=== PATIENT | female | born 1985 | race Caucasian/White ===

== ENCOUNTER 2020-01-01 14:05 | Inpatient (IN) ==
[2020-01-02] MEDS ORDERED: LIDOCAINE HCL 50 ML VIAL PERI PRN (06:13)
[2020-01-02] MEDS ORDERED: BUTORPHANOL TARTRATE 2 MG/ML VIAL IV PRN ×2 (06:13)
[2020-01-02] MEDS ORDERED: RINGER'S SOLUTION,LACTATED 1,000 ML IV ONE (06:13)
[2020-01-02] MEDS ORDERED: ONDANSETRON 4 MG TAB.RAPDIS PO PRN (06:13)
[2020-01-02] MEDS ORDERED: OXYTOCIN/DEXTROSE 5%-WATER 30 UNITS/500 ML BAG IV ONE (06:13)
[2020-01-02] MEDS ORDERED: MISOPROSTOL 100 MCG TABLET VG PRN (07:31)
--- NOTE | 2020-01-02 08:28 | HP ---
Chief Complaint - Chief Complaint Date of Service: 01/02/20 Time of Service: 08:24 Chief Complaint: Labor induction History of Present Illness: 34 year old at 39w 1d who presents to labor and delivery for a medical IOL due to AMA. She denies ctx, vb or lof. Fetus is active. Medical History (Last Reviewed 01/02/20 @ 08:25 by Dolly Delgadillo MD) POTS (postural orthostatic tachycardia syndrome) Asthma mild intermittent asthma-no problems for several years Surgical History: Surgical History (Last Reviewed 01/02/20 @ 08:25 by Dolly Delgadillo MD) History of breast surgery Onset Date: ~2013 right gland/partial duct removed Hx of cholecystectomy Onset Date: ~2017 Normal colonoscopy Onset Date: ~2010 abdominal pain, bloody stools Family History: Family History (Last Reviewed 01/02/20 @ 08:25 by Dolly Delgadillo MD) Mother Cancer thyroid cancer Father Diabetes borderline Sister History of heart murmur in childhood Social History: (Last Reviewed 01/02/20 @ 08:25 by Dolly Delgadillo MD) Social History: adopted: No Marital status: household members: spouse, children current occupational status: unemployed current occupation: stay at home mom current occupational exposures/hazards: No Highest education level completed: high school graduate Service: No Tobacco: Smoking Status: Never smoker Alcohol: alcohol intake: never Substance Use: substance use type: does not use Dietary Habits: caffeine: Yes Review Of Systems (GEN) - Review of Systems Generalized/Overall Review: Present: No Symptoms Reported Misc: All systems neg except as marked Allergies/Adverse Reactions: Allergies Allergy/AdvReac Type Severity Reaction Status Date / Time No Known Drug Allergies Allergy Verified 12/30/19 09:14 adhesive tape AdvReac RASH Verified 12/30/19 09:14 garlic AdvReac Itching Verified 12/30/19 09:14 Influenza Virus Vaccines AdvReac Shortness Verified 12/30/19 09:14 of Breath onion AdvReac GI upset Verified 12/30/19 09:14 Home Medications: HOME MEDICATIONS [id number] 400 mcg-om3 35 mg-dha 25 mg-epa 5 mg-fish oil chewable tablet 1 tab PO DAILY 07/29/19 [Last Taken Unknown] doxylamine succinate 25 mg tablet 25 tab PO HS PRN 07/29/19 [Last Taken Unknown] pyridoxine (vitamin B6) 25 mg tablet 25 mg PO DAILY 07/29/19 [Last Taken Unknown] ascorbic acid (vitamin C) 500 mg capsule 500 mg PO DAILY cap 10/28/19 [Last Taken Unknown] ferrous sulfate 325 mg (65 mg iron) tablet 325 mg PO DAILY 10/28/19 [Last Taken Unknown] breast pump See Rx Instructions .ROUTE .MEDSUPPLY #1 ea 12/30/19 [Last Taken Unknown] Exam - Exam Vital Signs: Vital Signs - Last Taken Temp 36.8 C 01/02/20 06:18 Pulse 88 01/02/20 06:18 Resp 18 01/02/20 06:18 BP 136/79 01/02/20 06:18 Pulse Ox 98 01/02/20 06:18 Constitutional: Present: Alert, Oriented x3, Cooperative, No distress ENT Exam: Present: hearing grossly normal Eye Exam: bilateral eye: normal inspection Neck: Present: normal inspection Back Exam: Present: normal inspection Breasts: Present: Exam deferred Respiratory: Present: lungs clear, normal breath sounds, no respiratory distress Cardiovascular/Chest: Present: regular rate, rhythm Abdomen: Present: Normal bowel sounds, soft, nontender, nondistended /Rectal: Present: Exam deferred Extremity: Present: non-tender, no calf tenderness Skin Exam: Present: normal color, warm/dry, no cyanosis Neurologic: Present: alert, normal mood/affect, oriented x 3 Appearance: Present: appropriate appearance, appropriate insight, neat Eye contact: Present: cooperative, good eye contact, normal speech Thoughts: Present: normal thought pattern Diagnostic Studies: Laboratory Results Blood Type O Positive 01/02/20 06:45 Antibody Screen Negative 01/02/20 06:45 Assessment/Plan - Narrative Narrative: 34 year old at 39w 1d 1. Medical IOL due to AMA: the patient was on pitocin per the orders. Pitocin turned off due to unfavorable cervix. A dose of cytotec was given. Vertex presentation was confirmed by bedside ultrasound as RN could not feel presenting part during vaginal examination. 2. GBS negative: prophylaxis not indicated
--- NOTE | 2020-01-02 16:08 | PN ---
Adrianne Note - Interim Date: 01/02/20 Time: 16:07 Narrative: 01/02/20 16:07 The patient is starting to feel her ctx more especially in her back cvx is 4/50/-3 AROM for clear fluid FHT cat 1 ctx are q2-4 mins Pitocin currently at 2 milliunits/min
[2020-01-02] MEDS ORDERED: ONDANSETRON HCL/PF 2 MG/ML VIAL IV PRN (16:36)
[2020-01-02] MEDS ORDERED: BUPIVACAINE HCL/0.9 % NACL/PF 250 ML EP PRN (16:36)
[2020-01-02] MEDS ORDERED: NALOXONE HCL 1 MG/1 ML SYRG IV PRN (16:36)
[2020-01-02] MEDS ORDERED: BUPIVACAINE HCL/PF 30 ML VIAL EP SCH (16:45)
--- NOTE | 2020-01-02 18:07 | OR ---
Operative Report - Dictated Report Narrative: Date of delivery: 01/02/2020 Time of delivery: 1737 Gender: female APGARS: 99 weight: 4015 grams Procedure: Description of the procedure: The patient is a 34 year old at 39w 1d who presented to L&D for a medical IOL due to AMA. She received one dose of cytotec. She was then started on pitocin and membranes were ruptured. She progressed to complete dilation. She delivered a viable female infant in OP presentation. The shoulders delivered without any difficulty followed by the rest of the infant. The was vigorous and thus cord clamping was delayed for 60 seconds. The cord was clamped and cut. Cord blood was collected. The placenta was delivered by expression and appeared intact. The perineum was infiltrated with 30 mL of 1% lidocaine for analgesia since the patient did not have an epidural. A second degree perineal laceration was repaired in the standard surgical fashion using a 2-0 vicryl suture. EBL: 50 mL Specimens: cord blood Complications: none History for MU Definition: * The number of deliveries resulting in a live the patient experienced prior to current hospitalization * The previous delivery of live twins or any live multiple gestation is considered one live event. *If primagravida or nulliparous is documented select zero for the number of previous live births. Live Events: 3
[2020-01-02] MEDS ORDERED: diphenhydrAMINE HCL 25 MG CAPSULE PO PRN (18:08)
[2020-01-02] MEDS ORDERED: OXYTOCIN/0.9 % SODIUM CHLORIDE 30 UNITS/500 ML BAG IV ONE (18:08)
[2020-01-02] MEDS ORDERED: HYDROCORTISONE 30 APPL TUBE TP PRN (18:08)
[2020-01-02] MEDS ORDERED: BISACODYL 10 MG SUPP.RECT RC PRN (18:08)
[2020-01-02] MEDS ORDERED: SENNOSIDES 8.6 MG TABLET PO PRN (18:08)
[2020-01-02] MEDS ORDERED: BENZOCAINE/MENTHOL 81 SPRAY CAN TP PRN (18:08)
[2020-01-02] MEDS ORDERED: GLYCERIN/WITCH HAZEL LEAF 40 APPL BOX TP PRN (18:08)
[2020-01-02] MEDS ORDERED: HYDROcodone/ACETAMINOPHEN 1 EACH TABLET PO PRN ×2 (18:08)
[2020-01-02] MEDS: IBUPROFEN 800 MG TABLET PO PRN (19:25)
[2020-01-02] MEDS: DOCUSATE SODIUM 100 MG CAPSULE PO SCH (21:53)
[2020-01-03] MEDS: IBUPROFEN 800 MG TABLET PO PRN (08:18)
[2020-01-03] MEDS: DOCUSATE SODIUM 100 MG CAPSULE PO SCH ×2 (08:18→20:35)
--- NOTE | 2020-01-03 09:43 | PN ---
Subjective - Date and Time Seen Date: 01/03/20 Time: 09:42 Objective - Vitals Vitals: Last Vital Signs Temp 36.8 C 01/03/20 07:15 Pulse 66 01/03/20 07:15 Resp 16 01/03/20 07:15 BP 131/72 01/03/20 07:15 Pulse Ox 98 01/03/20 07:15 Patient denies complaints. Breast-feeding Lochia wnl abdomen - soft, nontender Uterus -firm, at umbilicus - 1 no calf tenderness Impression: day #1 - s/p spontaneous vaginal delivery. Plan: Continue routine care
[2020-01-04] MEDS: IBUPROFEN 800 MG TABLET PO PRN (01:21)
--- NOTE | 2020-01-04 05:10 | PN ---
Subjective - Date and Time Seen Date: 01/04/20 Time: 05:09 Objective - Vitals Vitals: Last Vital Signs Temp 36.9 C 01/04/20 01:50 Pulse 64 01/04/20 01:50 Resp 16 01/04/20 01:50 BP 148/67 H 01/04/20 01:50 Pulse Ox 98 01/04/20 01:50 Patient denies complaints. Breast-feeding. Lochia wnl abdomen - soft, nontender Uterus -firm, at umbilicus - 2 No calf tenderness Impression: day #2 - s/p spontaneous vaginal delivery. Plan: Routine discharge instructions
[2020-01-04 07:36] LABS: Hematocrit 31.1 % (37.0-47.0); Hemoglobin 10.4 gm/dL (12.5-16.0); Mean Cell Volume 89.1 fl (78-100); Mean Corpuscular Hemoglobin 29.8 pg (27-31); Mean Corpuscular Hgb Conc 33.4 g/dl (32-36); Mean Platelet Volume 9.1 fl (8-12.5); Neutrophil % 75.9 % (42-75.0); Platelet Count 167 K/mm3 (150-450); Red Blood Count 3.49 M/mm3 (4.2-5.4); Red Cell Distribution Width 14.9 % (11.5-14.0); White Blood Count 10.6 K/mm3 (4.0-10.5)
[2020-01-04 07:40] VITALS: BP 134/68
[2020-01-04 07:49] LABS: Albumin * 2.3 gm/dl (3.4-5.0); Anion Gap 11.5 mmol/L (6.8-13.8); BUN/Creatinine Ratio 9.2 (9.0-21.6); Bilirubin, Total 0.4 mg/dL (0.0-1.1); Ca. Corrected For Albumin 9.2 mg/dL (8.4-10.2); Calcium * 8.2 mg/dL (7.9-10.9); Carbon Dioxide 26.3 mmol/L (24-32.6); Potassium 2.8 mmol/L (3.4-4.6); Total Protein 5.5 gm/dL (6.2-8.2)
[2020-01-04] MEDS ORDERED: POTASSIUM CHLORIDE 20 MEQ TABLET.SA PO ONE (08:27)
[2020-01-04] MEDS: DOCUSATE SODIUM 100 MG CAPSULE PO SCH (09:27)
== END 2020-01-04 12:20 | disposition home or self-care (01) | DRG 807 ==
LOC: OB 01-02 05:52
PROVIDERS: ADMIT Obstetrics & Gynecology; ATTEND Obstetrics & Gynecology